=== PATIENT | male | born 1980 | race Caucasian/White ===

== ENCOUNTER 2016-06-13 15:20 | Emergency (ER) | payer SELFPAY ==
[2016-06-13 15:39] VITALS: BP 144/97; PULSE 75; TEMP 98.6; BMI 24.1
[2016-06-13] MEDS ORDERED: CEPHALEXIN MONOHYDRATE 500 MG CAPSULE (UD) ONE (17:22)
--- NOTE | 2016-06-13 17:29 | PDOC ---
History of Present Illness - General Chief Complaint: Laceration Stated Complaint: LACERATION/ WORK RELATED Time Seen by Provider: 06/13/16 17:10 History Source: Patient Exam Limitations: No Limitations - History of Present Illness Initial Comments: 06/13/16 17:24 36 yr male with avulsion injury right ring finger at work using machine. no active bleeding. tetanus unknown. Pt denies numbness or tingling. Timing/Duration: reports: just prior to arrival Severity: Yes: mild Location: reports: extremities Past History - Past Medical History Allergies/Adverse Reactions: Allergies Allergy/AdvReac Type Severity Reaction Status Date / Time acetaminophen [From Tylenol] Allergy Verified 06/13/16 15:24 Home Medications: Ambulatory Orders Cephalexin [Keflex] 250 mg PO QID #28 capsule 06/13/16 Ibuprofen 800 mg PO TID #21 tablet 06/13/16 Other medical history: none - Family Disease History Comment:: 06/13/16 17:25 none - Psycho/Social/Smoking Cessation Hx Anxiety: No Suicidal Ideation: No Smoking History: Never smoked Have you smoked in the past 12 months: No Information on smoking cessation initiated: No Hx Alcohol Use: No Drug/Substance Use Hx: No Substance Use Type: None Review of Systems - Review of Systems Able to Perform ROS?: Yes Is the patient limited Ghanaian proficient: No Constitutional: No: Symptoms Reported HEENTM: No: Symptoms Reported Respiratory: No: Symptoms reported Cardiac (ROS): No: Symptoms Reported ABD/GI: No: Symptoms Reported : No: Symptoms Reported Musculoskeletal: Yes: See HPI Integumentary: Yes: See HPI *Physical Exam - Vital Signs Last Vital Signs Temp Pulse Resp BP Pulse Ox 98.6 F 75 18 144/97 100 06/13/16 15:29 06/13/16 15:29 06/13/16 15:29 06/13/16 15:29 06/13/16 15:29 - Physical Exam General Appearance: Yes: Nourished, Appropriately Dressed HEENT: positive: EOMI, COLLIN Neck: positive: Supple. 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 will bandage with surgicel, xeroform and bulky finger dressing. Medical Decision Making - Medical Decision Making 06/13/16 17:38 cc: finger avulsion in machine at work nail intact, no bony tenderness will xray r/o fx, keflex and boostrix f/u wound check 48hrs wound care as noted 06/13/16 18:20 *DC/Admit/Observation/Transfer Diagnosis at time of Disposition: Avulsion of finger Qualifiers: Encounter type: initial encounter Qualified Code(s): S61.209A - Unspecified open wound of unspecified finger without damage to nail, initial encounter - Discharge Dispostion Disposition: HOME Condition at time of disposition: Good - Prescriptions Prescriptions: Ibuprofen 800 mg PO TID #21 tablet Cephalexin [Keflex] 250 mg PO QID #28 capsule - Patient Instructions Additional Instructions: return in 48 hrs for wound check Do NOT get wet keep bandage dry take the antibiotics as prescribed take motrin 800mg every 6-8hrs for pain Regreso en 48 horas para el chequeo de la herida 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
[2016-06-13] MEDS ORDERED: CEPHALEXIN MONOHYDRATE 500 MG CAPSULE (UD) PO ONE (17:39)
[2016-06-13] MEDS ORDERED: DIPHTH,PERTUSS(ACELL),TET 0.5 ML DISP.SYRIN IM ONE (17:39)
== END 2016-06-13 19:32 | disposition home or self-care (01) ==
LOC: JERFT 15:20 → JER 15:20 → JERFT 19:32
PROC: 3E0234Z Introduction of Serum, Toxoid and Vaccine into Muscle, Percutaneous Approach (ICD-10-PCS; principal; 2016-06-13)
PROC: 0HQDXZZ Repair Right Lower Arm Skin, External Approach (ICD-10-PCS; 2016-06-13)
DX: S61.304A Unspecified open wound of right ring finger with damage to nail, initial encounter (principal); T81.4XXA Infection following a procedure, initial encounter; B99.9 Unspecified infectious disease; W31.89XA Contact with other specified machinery, initial encounter; Y93.89 Activity, other specified; Y99.0 Civilian activity done for income or pay
CPT/HCPCS: 12001-25; 73140-TC-RT; 90471; 90715; 99281-25

== ENCOUNTER 2016-06-15 08:14 | Emergency (ER) | payer SELFPAY ==
[2016-06-15 08:43] VITALS: BP 125/66; PULSE 58; TEMP 98; BMI 24.1
[2016-06-15] MEDS ORDERED: BACITRACIN 30 GM TUBE TOPICAL OINTMENT ONE (09:17)
--- NOTE | 2016-06-15 09:22 | PDOC ---
Suture Removal/Wound Check HPI - History of Present Illness Chief Complaint: Revisit,Wound Recheck Stated Complaint: CHECK WOUND Time Seen by Provider: 06/15/16 08:55 History Source: Yes: Patient Exam Limitations: Yes: No Limitations Treated at: [facility] Date of Last ED visit: 06/13/16 - Previous ED Treatment Type of procedure performed on last visit: Yes: Laceration Repair Tetanus Immunization: Yes: Up to Date, Given at last ED visit Antibiotics Prescribed: Yes (KEFLEX) - Onset of Previous Treatment Date of Occurence: 06/13/16 Past History - Past Medical History Allergies/Adverse Reactions: Allergies acetaminophen [From Tylenol] Allergy (Verified 06/15/16 08:39) Home Medications: Ambulatory Orders Cephalexin [Keflex] 250 mg PO QID #28 capsule 06/13/16 Ibuprofen 800 mg PO TID #21 tablet 06/13/16 General: Yes: no pertinent history - Immunization History Tetanus Status: Unknown - Social History Smoking Status: Never smoked Suture Removal/Wound Check PE - Physical Exam Laceration/Wound Check Symptoms: reports: None Current Severity Level: Mild Maximum Severity Level: Moderate Location of Laceration/Wound: right: Finger (DISTAL PALMAR 4TH FINGER) Comments: 06/15/16 09:18 Patient was here on 06/13/2016 with a laceration of his right distal palmar fourth finger with avulsed skin was unable to be sutured. Patient's abstain this injury at work as a [employer]en. Patient requests discharge was Xeroform on finger and was told to return today for wound check. Patient reports the pain is minimal. Patient denies any fever. There is no redness of right finger surrounding the wound and distal aspect of the fourth finger. Patient is up-to- date with tetanus had it last exam patient has been taking antibiotic that was prescribed here 2016. Pain radiates to: right: Extremity(ies) (4th finger distal ) Comments: 06/15/16 09:19 06/15/16 09:25 Right fourth finger distal palmar aspect wound is dry no surrounding erythema there is slight avulsion of skin noted area is minimally tender. Patient has full range of motion of the right fourth DIP and PIP joint no signs of infection noted. *Review of Systems - Review of Systems Able to Perform ROS?: Yes Constitutional: No: Symptoms Reported HEENTM: No: Symptoms Reported Respiratory: No: Symptoms reported Cardiac (ROS): No: Symptoms Reported Musculoskeletal: Yes: Other (full range of motion rt. 4th finger dip jt, pip jt, ) Integumentary: Yes: Other (avulsed skin laceration rt. 4th distal palmar finger from 06/13/16 ) Neurological: No: Symptoms reported Procedures - Consent Consent obtained: From Patient - Additional Procedures Progress: 06/15/16 09:21 Fourth finger distal palmar aspect wound is clean with no discharge no surrounding erythema there is avulsed skin, cleansed with Betadine and normal saline 0.9% dried tiny amount of bacitracin applied with Telfa and Karina. Medical Decision Making - Medical Decision Making 06/15/16 09:22 Right fourth finger distal aspect of all skin laceration that was sustained on 06/13/2016 to palmar aspect. Patient has minimal pain in the area. Patient has been afebrile. Patient has full range of motion of distal fourth DIP and PIP joint. Patient denies any numbness of finger. Wound check right fourth finger Plan: Demonstrate patient how to cleanse wound daily twice daily with antibacterial soap pat dry and apply tiny amount of bacitracin ointment cover with Telfa and Karina let air out at night Continue to take antibiotics as previously prescribed Return to emergency room if any fever, redness around wound or swelling around wound or foul smelling discharge from wound Up at [facility] at [phone] *DC/Admit/Observation/Transfer Diagnosis at time of Disposition: Visit for wound check - Discharge Dispostion Disposition: HOME Condition at time of disposition: Stable - Patient Instructions Additional Instructions: cleanse wound daily twice daily with antibacterial soap pat dry and apply tiny amount of bacitracin ointment cover with Telfa and Karina let air out at night Continue to take antibiotics as previously prescribed Return to emergency room if any fever, redness around wound or swelling around wound or foul smelling discharge from wound Up at [facility] at [phone] Patient Voiced understanding of discharge instructions and all questions were answered
== END 2016-06-15 09:41 | disposition home or self-care (01) ==
LOC: JERFT 08:14 → JER 08:14 → JERFT 09:41
DX: Z09 Encounter for follow-up examination after completed treatment for conditions other than malignant neoplasm (principal)
CPT/HCPCS: 99281-25

== ENCOUNTER 2018-06-07 20:18 | Emergency (ER) | payer SELFPAY ==
[2018-06-07 20:39] VITALS: BP 127/80; PULSE 98; TEMP 100.1; BMI 28.5
[2018-06-07] MEDS ORDERED: IBUPROFEN 600 MG TABLET (FP) PO ONE ×2 (20:40→22:41)
--- NOTE | 2018-06-07 20:40 | PDOC ---
Rapid Medical Evaluation Time Seen by Provider: 06/07/18 20:36 Medical Evaluation: Allergies Allergy/AdvReac Type Severity Reaction Status Date / Time acetaminophen [From Tylenol] Allergy Verified 06/15/16 08:39 06/07/18 20:36 I have performed a brief in-person evaluation of this patient. The patient presents with a chief complaint of: cold symptoms since Thursday. Reports chest discomfort with productive cough, headache and bodyaches. States producing blood-tinged sputum at times. Pertinent physical exam findings: NAD intermittent coughing in triage heart s1, s2 I have ordered the following: antipyretic The patient will proceed to the ED for further evaluation.
--- NOTE | 2018-06-07 23:30 | PDOC ---
History of Present Illness - History of Present Illness Initial Comments: 06/07/18 23:32 The patient is a 38 year old male with no known PMH presents to the ER with fever, mild chest pain, nonproductive cough, generalized body aches, some diarrhea this morning and mild diffuse headache today. Patient reports taking an OTC cough medication. Denies sick contact. Denies recent travel. The patient denies shortness of breath, dizziness, chills, nausea, vomit, constipation. Denies dysuria, frequency, urgency and hematuria. Allergies: NKA Past surgical history: None reported. Social history: No reported alcohol, drug or cigarette use. <Rosalind Hathaway - Last Filed: 06/07/18 23:32> - General History Source: Patient Exam Limitations: No Limitations <Sri Del Rio - Last Filed: 06/08/18 00:10> - General Chief Complaint: Cold Symptoms Stated Complaint: COUGH WEAKNESS FEVER Time Seen by Provider: 06/07/18 20:36 Past History <Rosalind Hathaway - Last Filed: 06/07/18 23:32> - Past Medical History COPD: No - Suicide/Smoking/Psychosocial Hx Smoking History: Never smoked Have you smoked in the past 12 months: No Hx Alcohol Use: No Drug/Substance Use Hx: No Substance Use Type: None <Sri Del Rio - Last Filed: 06/08/18 00:10> - Past Medical History Allergies/Adverse Reactions: Allergies Allergy/AdvReac Type Severity Reaction Status Date / Time acetaminophen [From Tylenol] Allergy Verified 06/07/18 20:39 Home Medications: Ambulatory Orders Cephalexin [Keflex] 250 mg PO QID #28 capsule 06/13/16 Ibuprofen 800 mg PO TID #21 tablet 06/13/16 Ibuprofen [Motrin -] 600 mg PO TID PRN #90 tablet 06/08/18 Review of Systems - Review of Systems Constitutional: Yes: Chills, Fever Respiratory: Yes: Cough ABD/GI: Yes: Diarrhea Musculoskeletal: Yes: Back Pain, Muscle Pain Neurological: Yes: Headache All Other Systems: Reviewed and Negative <Sri Del Rio - Last Filed: 06/08/18 00:10> *Physical Exam - Vital Signs Last Vital Signs Temp Pulse Resp BP Pulse Ox 100.1 F H 98 H 18 127/80 98 06/07/18 20:38 06/07/18 20:38 06/07/18 20:38 06/07/18 20:38 06/07/18 20:38 <Rosalind Hathaway - Last Filed: 06/07/18 23:32> - Vital Signs Last Vital Signs Temp Pulse Resp BP Pulse Ox 100.1 F H 98 H 18 127/80 98 06/07/18 20:38 06/07/18 20:38 06/07/18 20:38 06/07/18 20:38 06/07/18 20:38 - Physical Exam Comments: 06/07/18 23:27 awake alert lungs clear bilaterally heart rrr no mrg abd soft nt nd. ext wwp skin warm and dry no rash. nuero alert oriented x 3. <Sri Del Rio - Last Filed: 06/08/18 00:10> Moderate Sedation - Procedure Monitoring Vital Signs: Procedure Monitoring Vital Signs Temperature 100.1 F H 06/07/18 20:38 Pulse Rate 98 H 06/07/18 20:38 Respiratory Rate 18 06/07/18 20:38 Blood Pressure 127/80 06/07/18 20:38 O2 Sat by Pulse Oximetry (%) 98 06/07/18 20:38 <Rosalind Hathaway - Last Filed: 06/07/18 23:32> - Procedure Monitoring Vital Signs: Procedure Monitoring Vital Signs Temperature 100.1 F H 06/07/18 20:38 Pulse Rate 98 H 06/07/18 20:38 Respiratory Rate 18 06/07/18 20:38 Blood Pressure 127/80 06/07/18 20:38 O2 Sat by Pulse Oximetry (%) 98 06/07/18 20:38 <Sri Del Rio - Last Filed: 06/08/18 00:10> ED Treatment Course - Medications Given in the ED: ED Medications Discontinued Medications Generic Name Dose Route Start Last Admin Trade Name Freq PRN Reason Stop Dose Admin Ibuprofen 600 mg 06/07/18 20:40 06/07/18 22:55 Motrin - PO 06/07/18 20:41 600 mg ONCE ONE Administration <Rosalind Hathaway - Last Filed: 06/07/18 23:32> - RADIOLOGY Radiology Studies Ordered: Category Date Time Status CHEST PA & LAT [RAD] Stat Radiology 06/07/18 23:24 Ordered - Medications Given in the ED: ED Medications Discontinued Medications Generic Name Dose Route Start Last Admin Trade Name Adam PRN Reason Stop Dose Admin Ibuprofen 600 mg 06/07/18 20:40 06/07/18 22:55 Motrin - PO 06/07/18 20:41 600 mg ONCE ONE Administration <Sri Del Rio - Last Filed: 06/08/18 00:10> Medical Decision Making - Medical Decision Making 06/07/18 23:29 38 yo male with sxs classic for influenze. will obtain cxr r/o pna. motrin given in triage. pt allergic to tylenol. 06/08/18 00:10 cxr negative given rx for motrin dc home. <Sri Del Rio - Last Filed: 06/08/18 00:10> *DC/Admit/Observation/Transfer <Rosalind Hathaway - Last Filed: 06/07/18 23:32> - Discharge Dispostion Decision to Admit order: No <Sri Del Rio - Last Filed: 06/08/18 00:10> Diagnosis at time of Disposition: Influenza - Discharge Dispostion Disposition: HOME Condition at time of disposition: Improved - Prescriptions Prescriptions: Ibuprofen [Motrin -] 600 mg PO TID PRN #90 tablet PRN Reason: Pain Or Fever - Patient Instructions Printed Discharge Instructions: Influenza Additional Instructions: take motrin 600 mg every 8 hrs as needed for pain. follow up with your primary doctor. return for vomiting, confusion or shortness of breath. you should not go to work until you have no fever for 48 hrs. Print Language: MACEDONIAN - Post Discharge Activity Forms/Work/School Notes: Back to Work
== END 2018-06-08 00:30 | disposition home or self-care (01) ==
LOC: JER 20:18 → JERFT 20:18 → JER 06-08 00:30
DX: J11.1 Influenza due to unidentified influenza virus with other respiratory manifestations (principal)
CPT/HCPCS: 71046-TC-FY; 99281-25